=== PATIENT | male | born 1945 | race Hispanic/Latino ===

== ENCOUNTER 2024-07-08 11:03 | Outpatient (CLI) | payer MEDICARE, SELFPAY ==
--- NOTE | 2024-07-28 16:12 | WPDSLEEPSTUD ---
Sleep Study Date of Study: 07/08/24 Ordering Provider: SCARLETT Velasquez Interpreting Physician: Linda Aldridge DO Sleep Study Type: Split Polysomnogram Height: 1.68 m Weight: 84.822 kg Body Mass Index: 30.2 Neck Circumference (inches): 18 [place]: 9 Reason for Sleep Study Snoring, daytime hypersomnia Sleep History The patient is a 79-year-old male that had a sleep study ordered by the pulmonary group for evaluation of sleep apnea. The patient denies awakening from sleep short of breath. He frequently awakens at night with heartburn, belching or cough. He frequently snores and 8 is constantly loud enough that others complain. He denies having trouble sleeping when he has a cold. He denies waking up gasping for air throughout the night. He denies having breathing problems at night observed by himself or others. He constantly sweats excessively at night. He denies having heart palpitations or irregular heartbeats during the night. He constantly falls asleep during the day but never while driving. He denies sleep paralysis, cataplexy and hypnagogic / hypnopompic hallucinations. He denies having trouble at school or work due to sleepiness. He denies feeling afraid of going to sleep. He denies having nightmares and denies remembering his dreams. He denies having thoughts racing through his mind. He denies feeling sad, depressed or anxious. He denies having muscular tension. He denies noticing parts of his body jerk. He denies kicking during the night. He denies having crawling and aching feelings in his legs and denies having leg pain during the night. He denies grinding his teeth during sleep and denies awakening with morning jaw pain. He is occasionally bothered by pain during the day but never awakened by pain during the night. He occasionally wakes up feeling stiff in the morning. He occasionally wakes up with sore or achy muscles. He denies waking up with pain in the neck, spine and other joints. He goes to bed at 8:30 p.m. on weekdays and at 9:30 p.m. on the weekends. It takes him 10 minutes to fall asleep. He wakes up twice throughout the night for unknown reasons but he will watch television for 15 minutes until he is able to fall back asleep. He wakes up at 4:30 a.m. on weekdays and at 5:00 a.m. on the weekends. He typically gets 8 hours of sleep per night. He denies staying in bed after waking up in the morning. He currently lives with his . He denies consuming any caffeinated beverages within 2 hours of bedtime. He denies engaging in physical exercise before bedtime. He will watch television before falling asleep. He does consume caffeinated beverages throughout the day. He quit smoking cigarettes 10 years ago. He does consume an unspecified amount of alcoholic beverages during the day. He denies recreational drug use. [facility] Past Medical History Medical History Aortic aneurysm Hyperlipidemia Type 2 diabetes mellitus Social History Social History Smoking status: Former smoker Medications Home Medications Medication Instructions Recorded Confirmed Type ascorbic acid (vitamin C) 1,000 mg 1 g PO DAILY 06/23/24 06/23/24 History capsule aspirin 325 mg tablet 325 mg PO DAILY 06/23/24 06/23/24 History atorvastatin 10 mg tablet 10 mg PO DAILY 06/23/24 06/23/24 History eszopiclone 2 mg tablet (Lunesta) 2 mg PO ONCE #1 tablet 06/23/24 06/23/24 Rx finasteride 5 mg tablet 5 mg PO DAILY 06/23/24 06/23/24 History metformin 500 mg tablet 500 mg PO DAILY 06/23/24 06/23/24 History metoprolol succinate 25 mg 25 mg PO DAILY 06/23/24 06/23/24 History tablet,extended release 24 hr multivitamin,rg-qval-Tm-FA-min tablet PO DAILY 06/23/24 06/23/24 History terazosin 2 mg capsule 2 mg PO QHS 06/23/24 06/23/24 History tirzepatide 7.5 mg/0.5 mL mg subcut 06/23/24 06/23/24 History subcutaneous pen injector (Mounjaro) valsartan 320 mg tablet 320 mg PO DAILY 06/23/24 06/23/24 History Sleep Procedure A full night polysomnogram using the [employer] multi-channel system recorded the standard physiologic parameters including EEG, EOG, submentalis EMG, anterior tibialis EMG, EKG, body position, nasal and oral airflow using nasal pressure sensor and thermistor.? Respiratory parameters of chest and abdominal movements were recorded with Respiratory Inductance Plethysmography belts. Oxygen saturation was recorded by pulse oximetry. Video monitoring was also performed. Sleep stages, periodic limb movements, and EEG arousals were scored in 30 second epochs according to the criteria of the AASM Scoring Manual. The Apnea-Hypopnea Index was calculated using [facility] guidelines for definition of hypopnea with 4% O2 desaturations while scoring respiratory events. Sleep Architecture During the diagnostic portion of the study, the total recording time was 239.7 minutes. The total sleep time was 138.0 minutes. Sleep latency was 28.2 minutes.? REM latency was 191.5 minutes. Sleep Efficiency was 57.6%. The patient had 13 awakenings for an awakening index of 5.7. Wake after sleep onset time was 73.5 minutes. The patient spent 24.5 minutes, 17.8% of total sleep time in Stage N1. The patient spent 111.5 minutes, 80.8% in Stage N2. The patient spent 0.0 minutes, 0.0% in Stage N3. The patient spent 2.0 minutes, 1.4% in Stage REM sleep. At 02:51:49 AM the patient was placed on PAP treatment and was titrated at pressures ranging from 5 cm H20 up to 7 cm H20 with EPR of 2. During the treatment portion of the study, the total recording time was 210.7 minutes.? The total sleep time was 168.0 minutes. Sleep latency was 19.0 minutes. REM latency was 11.0 minutes. Sleep Efficiency was 79.8%. Wake after Sleep Onset time was 24.0 minutes. The patient spent 41.5 minutes, 24.7% of total sleep time in Stage N1. The patient spent 69.0 minutes, 41.1% in Stage N2. The patient spent 21.0 minutes, 12.5% in Stage N3. The patient spent 36.5 minutes, 21.7% in Stage REM. Respiratory Analysis During the diagnostic portion of the study, the patient had 9 hypopneas and 7 obstructive apneas for an overall Apnea Hypopnea Index of 7.0 events per hour. The REM Apnea Hypopnea Index was 60.0. The NREM Apnea Hypopnea Index was 6.2. The patient had a Central Apnea Hypopnea Index of 0. There were 8 Respiratory Effort Related Arousals resulting in a RERA index of 3.5 events per hour. The Respiratory Disturbance Index is 10.4 events per hour. There was no evidence of Dann-Mancini Respirations. During the treatment portion of the study, the patient had 2 hypopneas and 1 central apnea for an overall Apnea Hypopnea Index of 1.1 events per hour. The REM Apnea Hypopnea Index was 1.6. The NREM Apnea Hypopnea Index was 0.9. The patient had a Central Apnea Hypopnea Index of 0.4. There was no evidence of Dann-Mancini Respirations. The patient was started on CPAP 5 cm H2O and titrated to CPAP 7 cm H2O with EPR of 2. The patient was able to fall asleep starting on CPAP 5 cm H2O. The patient was able to achieve REM sleep starting on CPAP 6 cm H2O. The patient was able to achieve a residual AHI less than 5 with with both NREM and REM sleep in the supine position on the final pressure. On CPAP 7 cm H2O with EPR of 2, the patient spent 109 minutes in NREM and 21 minutes in REM with 1 hypopnea resulting in an AHI of 0.5. The patient had a sleep efficiency of 87% on this pressure setting. Arousals During the diagnostic portion of the study, there were a total of 43 arousals for an arousal index of 18.7.? There were 7 respiratory arousals for an index of 3.0. There were 0 periodic limb movement arousals for an index of 0.? There were 12 isolated limb movement arousals for an index of 5.2. There were 24 spontaneous arousals for an index of 10.4. During the treatment portion of the study, there were a total of 47 arousals for an index of 16.8.? There were 0 respiratory arousals for an index of 0. There were 3 periodic limb movement arousals for an index of 1.1.? There were 14 isolated limb movement arousals for an index of 5.0. There were 30 spontaneous arousals for an index of 10.7. Periodic Limb Movements During the diagnostic portion of the study, the patient had 27 isolated limb movements with an index of 11.7. The patient had 0 periodic limb movements with an index of 0. The patient had a total of 27 limb movements with a total limb movement index of 11.7. During the treatment portion of the study, the patient had 32 isolated limb movements with an index of 11.4. The patient had 4 periodic limb movements with an index of 1.4. The patient had a total of 36 limb movements with a total limb movement index of 12.9. Oximetry Data During the diagnostic portion of the study, the patient had an average oxygen saturation of 91.2% in wake with a minimum oxygen saturation of 86% and a maximum oxygen saturation of 95%. The patient had an average oxygen saturation of 90.3% in sleep with a minimum oxygen saturation of 83.0% and a maximum oxygen saturation of 94.0%. The patient had 14 oxygen desaturations resulting in an Oxygen Desaturation Index of 6.1. The patient spent 14.2 minutes, 6.2% of total sleep time with an oxygen saturation less than 88%. During the treatment portion of the study, the patient had an average oxygen saturation of 92.2% in wake with a minimum oxygen saturation of 88.0% and a maximum oxygen saturation of 96.0%. The patient had an average oxygen saturation of 90.5% in sleep with a minimum oxygen saturation of 87.0% and a maximum oxygen saturation of 95.0%. The patient had 6 oxygen desaturations resulting in an Oxygen Desaturation Index of 2.1. The patient spent 9 minutes, 4.3% of total sleep time with an oxygen saturation less than 88%. Snoring Profile Moderate snoring was present in the baseline portion of the study. The snoring resolved once the patient was started on CPAP. Cardiac Profile The EKG lead showed normal sinus rhythm. No arrhythmias or PVCs were seen. During the diagnostic portion of the study, the average pulse rate was 72.6 bpm.? The minimum pulse rate was 59.0 bpm. The maximum pulse rate was 93.0 bpm. During the treatment portion of the study, the average pulse rate was 73.0 bpm.? The minimum pulse rate was 63.0 bpm. The maximum pulse rate was 92.0 bpm. EEG Profile No signs of seizure activity seen. Assessment and Plan Assessment and Plan (1) GABRIEL (obstructive sleep apnea): Code(s): G47.33 - Obstructive sleep apnea (adult) (pediatric) Status: Acute Assessment and Plan: In the baseline portion of the study, the patient had an overall AHI of 7.0 with desaturation down to 83%. This is consistent with mild sleep apnea. Due to the patient's diabetes, he qualifies for PAP therapy. The patient was started on CPAP 5 cm H2O and titrated to CPAP 7 cm H2O with EPR of 2. The patient's sleep apnea resolved on the final pressure. I recommend that the patient be prescribed CPAP 7 cm H2O with EPR of 2, size large F&P solo nasal mask, CPAP filters/tubing and heated humidity. This should be used with all episodes of sleep.? Compliance should be reviewed within 31-90 days of starting therapy for usage greater than 4 hours per night greater than 70% of the nights. The patient should be asked about symptoms such as?excessive daytime sleepiness, quality of sleep, decreased nocturia, increased?mental functioning such as memory, mood, and concentration. Data The data obtained during this sleep study is adequate for interpretation. Certification This sleep study has been reviewed by a board certified sleep medicine physician.
[2024-07-28 16:13] VITALS: BMI 30.2
== END 2024-07-09 06:59 | disposition home or self-care (01) ==
PROVIDERS: PCP Nurse Practitioner Family; Visit Provider Physician Assistant
DX: G47.10 Hypersomnia, unspecified (principal); G47.33 Obstructive sleep apnea (adult) (pediatric)
CPT/HCPCS: 95811